=== PATIENT | female | born 1990 | race Caucasian/White ===

== ENCOUNTER 2020-08-20 09:37 | Emergency (ER) | payer OTHER, MEDICAID ==
[~2020-08-20] VITALS: Ht 170.2 cm; Wt 68.0 kg
[2020-08-20] MEDS ORDERED: CORTISPORIN OTI10 M2 OTIC (09:52)
[2020-08-20] MEDS ORDERED: AMOXICILLIN 50500 MG PO (09:52)
[2020-08-20 09:59] VITALS: BP 119/78
== END 2020-08-20 10:00 | disposition home or self-care (01) ==
LOC: M.ERS 09:37
DX: H66.92 Otitis media, unspecified, left ear (principal); H60.92 Unspecified otitis externa, left ear

== ENCOUNTER 2020-10-14 15:51 | Emergency (ER) | payer OTHER, MEDICAID ==
[~2020-10-14] VITALS: Ht 170.2 cm; Wt 61.2 kg
[~2020-10-14 15:51] MED LIST: AMOXICILLIN 50500 MG PO; CORTISPORIN OTI10 M2 OTIC
[2020-10-14] MEDS ORDERED: NORCO5 PO ×2 (16:35→19:39)
[2020-10-14] MEDS ORDERED: IBUPROFEN 800800 M1 PO ×2 (16:35→19:39)
[2020-10-14 17:34] VITALS: BP 135/81
== END 2020-10-14 17:35 | disposition home or self-care (01) ==
LOC: M.ERS 15:51
DX: S92.351A Displaced fracture of fifth metatarsal bone, right foot, initial encounter for closed fracture (principal); Z88.1 Allergy status to other antibiotic agents; W10.8XXA Fall (on) (from) other stairs and steps, initial encounter; Y93.89 Activity, other specified; Y92.89 Other specified places as the place of occurrence of the external cause; Y99.8 Other external cause status

== ENCOUNTER 2020-10-31 12:54 | Emergency (ER) | payer OTHER, MEDICAID ==
[~2020-10-31] VITALS: Ht 170.2 cm; Wt 68.0 kg
[~2020-10-31 12:54] MED LIST changes: +IBUPROFEN 800800 M1 PO; +NORCO5 PO
[2020-10-31 14:45] VITALS: BP 112/68
--- NOTE | 2020-11-03 11:31 | EKG ---
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
== END 2020-10-31 14:45 | disposition home or self-care (01) ==
LOC: M.ERS 12:54
DX: S20.211A Contusion of right front wall of thorax, initial encounter (principal); Z88.1 Allergy status to other antibiotic agents; W50.0XXA Accidental hit or strike by another person, initial encounter; Y93.89 Activity, other specified; Y92.89 Other specified places as the place of occurrence of the external cause; Y99.8 Other external cause status

== ENCOUNTER 2020-11-14 03:59 | Emergency (ER) | payer OTHER, MEDICAID ==
[~2020-11-14] VITALS: Ht 170.2 cm; Wt 63.5 kg
[2020-11-14 04:05] VITALS: BP 101/75
[2020-11-14] MEDS ORDERED: HYDROCODON-ACE1 EAC8 PO (04:19)
[2020-11-14] MEDS ORDERED: AMOXICILLIN875 MG PO (04:19)
== END 2020-11-14 04:22 | disposition home or self-care (01) ==
LOC: M.ERS 03:59
DX: H92.02 Otalgia, left ear (principal); R05.9 Cough, unspecified; F15.10 Other stimulant abuse, uncomplicated; R07.0 Pain in throat; Z88.1 Allergy status to other antibiotic agents

== ENCOUNTER 2020-12-21 14:41 | Emergency (ER) | payer OTHER, MEDICAID ==
[~2020-12-21] VITALS: Ht 170.2 cm; Wt 63.5 kg
[~2020-12-21 14:41] MED LIST changes: +AMOXICILLIN875 MG PO; +HYDROCODON-ACE1 EAC8 PO
[2020-12-21] MEDS ORDERED: DOXYCYCLINE 10100 MG PO (16:03)
[2020-12-21 16:14] VITALS: BP 128/64
== END 2020-12-21 16:16 | disposition home or self-care (01) ==
LOC: M.ERS 14:41
DX: S81.831A Puncture wound without foreign body, right lower leg, initial encounter (principal); Z88.8 Allergy status to other drugs, medicaments and biological substances; Y08.89XA Assault by other specified means, initial encounter; Y93.89 Activity, other specified; Y92.89 Other specified places as the place of occurrence of the external cause; Y99.8 Other external cause status